=== PATIENT | male | born 1985 | race Caucasian/White ===

== ENCOUNTER 2017-02-24 21:24 | Emergency (ER) | payer MEDICAID ==
[~2017-02-24] VITALS: Ht 185.4 cm; Wt 79.4 kg
--- NOTE | 2017-02-24 22:36 | NUR ---
ERMD at bedside for MSE.
[2017-02-24] MEDS ORDERED: HYDROCODONE/APAP 5-325MG TABLET PO ONE (22:45)
[2017-02-24] MEDS ORDERED: CLINDAMYCIN HCL 150 MG CAPSULE PO ONE (22:45)
--- NOTE | 2017-02-24 22:47 | NUR ---
Patient discharged to home in stable conditon. Written and verbal after care instructions given. Patient verbalizes understanding of instructions.
[2017-02-24] MEDS ORDERED: CLINDAMYCIN HCL 300 MG CAPSULE ONE (22:58)
[2017-02-24] MEDS ORDERED: HYDROCODONE/APAP 5-325MG TABLET ONE (22:59)
== END 2017-02-24 22:48 | disposition home or self-care (01) ==
LOC: ER 21:26
DX: K04.7 Periapical abscess without sinus (principal); F17.200 Nicotine dependence, unspecified, uncomplicated
CPT/HCPCS: 99283; A4663